=== PATIENT | female | born 1990 | race Caucasian/White ===

== ENCOUNTER 2016-11-03 15:47 | Emergency (ER) | payer OTHER ==
[2016-11-03] MEDS ORDERED: ONDANSETRON 4 MG/2 ML VIAL IVP STA (16:07)
[2016-11-03] MEDS ORDERED: SODIUM CHLORIDE 0.9% 1,000 ML IV ONE (16:07)
[2016-11-03] MEDS ORDERED: ONDANSETRON 4 MG/2 ML VIAL ONE (16:23)
[2016-11-03] MEDS ORDERED: IOPAMIDOL-300 100 ML VIAL IVP ONE (16:48)
== END 2016-11-03 17:55 | disposition home or self-care (01) ==
DX: R10.84 Generalized abdominal pain (principal); R11.2 Nausea with vomiting, unspecified
CPT/HCPCS: 36415; 74177; 80053; 81001; 81025; 83690; 85025; 96361; 96374; 99283; 99284; Q9967

== ENCOUNTER 2016-11-05 14:45 | Emergency (ER) | payer OTHER ==
[2016-11-05 15:08] VITALS: BP 115/73
--- NOTE | 2016-11-05 16:49 | ED Physician Documentation ---
PD HPI ABD PAIN - Stated complaint Stated Complaint: ABD PX - Chief complaint Chief Complaint: Abd Pain - History obtained from History obtained from: Patient - History of Present Illness Timing - onset: Other (Seen by me 2 days ago for right-sided abdominal pain and vomiting. Workup was negative including CT. Since then the pain has moved to the epigastrium, it is a dull and stabbing pain and she continues to have vomiting without hematemesis and no changes in her bowel movements. She does not take NSAIDs, drinks rarely. 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 - Present Medications Home Medications: Ambulatory Orders Medication Instructions Recorded Confirmed Ondansetron HCl [Zofran] 4 mg PO Q6H PRN #10 tablet 11/03/16 Omeprazole [PriLOSEC] 20 mg PO BID #20 capsule 11/05/16 - Allergies Allergies/Adverse Reactions: Allergies Allergy/AdvReac Type Severity Reaction Status Date / Time Penicillins Allergy Anaphylaxis Verified 11/03/16 15:51 - Social History Does the pt smoke?: No Smoking Status: Never smoker Does the pt drink ETOH?: Yes Does the pt have substance abuse?: No - Immunizations Immunizations are current?: No Immunizations: TDAP >10years/unknown PD ED PE NORMAL - Vitals Vital signs reviewed: Yes - General General: Alert and oriented X 3, No acute distress - Abdomen Abdomen: Normal bowel sounds, Soft, Other (Mild epigastric tendernerness) - Neuro Neuro: Alert and oriented X 3, Normal speech - Psych Psych: Normal mood, Normal affect Results - Vitals Vitals: Vital Signs - 24 hr 11/05/16 15:05 Temperature 37 C Heart Rate 73 Respiratory 18 Rate Blood Pressure 115/73 O2 Saturation 99 Oxygen O2 Source Room air PD MEDICAL DECISION MAKING - ED course ED course: 26yo woman with ongoing abd pain, now epigastric, completely better after GI cocktail here. Departure - Departure Disposition: Home, Self Care Clinical Impression: Epigastric abdominal pain Condition: Good Record reviewed to determine appropriate education?: Yes Instructions: ED PUD Vs Gastritis Prescriptions: Omeprazole [PriLOSEC] 20 mg PO BID #20 capsule Comments: Call your doctor to arrange a follow up appointment. Make the next available appointment. In the interim return anytime if worse or if new symptoms develop. Forms: Activity restrictions
[2016-11-05] MEDS ORDERED: MAG HYDROX/AL HYDROX/SIMETH 30 ML UDC ONE (16:51)
[2016-11-05] MEDS ORDERED: LIDOCAINE VISCOUS 2% 15 ML UDC MM ONE (16:51)
[2016-11-05] MEDS: MAG HYDROX/AL HYDROX/SIMETH 30 ML UDC PO STA (16:53)
[2016-11-05] MEDS: LIDOCAINE VISCOUS 2% 15 ML UDC MM STA (16:53)
== END 2016-11-05 17:21 | disposition home or self-care (01) ==
LOC: ED 14:45
DX: R10.13 Epigastric pain (principal)
CPT/HCPCS: 99283

== ENCOUNTER 2016-11-27 12:52 | Emergency (ER) | payer OTHER ==
[2016-11-27] MEDS ORDERED: PANTOPRAZOLE 40 MG TABLET PO STA (13:07)
[2016-11-27] MEDS ORDERED: LIDOCAINE VISCOUS 2% 15 ML UDC MM STA ×2 (13:07→15:18)
[2016-11-27] MEDS ORDERED: MAG HYDROX/AL HYDROX/SIMETH 30 ML UDC PO STA ×2 (13:07→15:18)
[2016-11-27] MEDS ORDERED: FAMOTIDINE 20 MG TABLET PO STA (15:18)
[2016-11-27] MEDS ORDERED: FAMOTIDINE 20 MG TABLET ONE (15:19)
[2016-11-27] MEDS ORDERED: MAG HYDROX/AL HYDROX/SIMETH 30 ML UDC ONE (15:19)
[2016-11-27] MEDS ORDERED: LIDOCAINE VISCOUS 2% 15 ML UDC MM ONE (15:19)
== END 2016-11-27 16:25 | disposition home or self-care (01) ==
DX: R10.13 Epigastric pain (principal); K76.0 Fatty (change of) liver, not elsewhere classified
CPT/HCPCS: 36415; 76705; 80053; 83690; 85025; 87339; 99283; 99284; A9270

== ENCOUNTER 2017-01-05 11:35 | Emergency (ER) | payer OTHER ==
[2017-01-05 11:47] VITALS: BP 111/69
--- NOTE | 2017-01-05 13:21 | ED Physician Documentation ---
PD HPI GI BLEED - Stated complaint Stated Complaint: BLOOD IN STOOL/VOMITING - Chief complaint Chief Complaint: Abd Pain - History obtained from History obtained from: Patient - History of Present Illness Timing - onset: Yesterday (she has had upper abd pain for 2-3 months, with prior U/S, CT, labs (including H.Pylori test) and has not Dx. Presumed ulcer and is on prilosec. Not improved. Has referral to GI at [facility] and she has contacted the clinic and is yet to get appt date, but will be in about a month. She has vomiting most mornings just once, then nausea often. Yesterday had emesis as usual, then a second emesis of bright red blood once. Nauses through the day. This morning had emesis again, and then second one that was red blood. Also noted a soft stool this morning which was black colored.) Timing - duration: Days (2) Associated symptoms: Vomiting, Hematemesis, Black/tarry stool, Abdominal pain, Loss of appetite. No: Coffee ground emesis, BRBPR, Dizzy, Near syncope / syncope, Weight loss Contributing factors: No: Sick contact, Bad food, NSAID use Improved by: No: Eating Worsened by: Eating Similar symptoms before: No diagnosis Review of Systems Constitutional: denies: Fever, Chills Nose: denies: Rhinorrhea / runny nose, Congestion Throat: denies: Sore throat Respiratory: denies: Cough GI: reports: Abdominal Pain, Nausea, Vomiting (about once daily the past month, but had vomiting of blood the past 2 mornings.), Bloody / black stool (dark stool today.) PD PAST MEDICAL HISTORY - Past Medical History Past Medical History: Yes Cardiovascular: None Respiratory: None Neuro: None Endocrine/Autoimmune: None GI: Ulcers Psych: Depression - Past Surgical History 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 - Present Medications Home Medications: Ambulatory Orders Medication Instructions Recorded Confirmed Omeprazole [PriLOSEC] 20 mg PO DAILY #60 capsule 11/27/16 01/05/17 Hydrocodone/Acetaminophen [Custer 1 each PO Q6H PRN #20 tablet 01/05/17 5-325 Tablet] Ondansetron HCl [Zofran] 4 mg PO Q6H PRN #20 tablet 01/05/17 Sucralfate 1 gm PO QID #40 tablet 01/05/17 - Allergies Allergies/Adverse Reactions: Allergies Allergy/AdvReac Type Severity Reaction Status Date / Time Penicillins Allergy Anaphylaxis Verified 11/27/16 12:57 - Social History Does the pt smoke?: Yes Smoking Status: Current every day smoker Does the pt drink ETOH?: Yes Does the pt have substance abuse?: No Substance Use and Type: Marijuana - Immunizations Immunizations are current?: No Immunizations: TDAP >10years/unknown PD ED PE NORMAL - Vitals Vital signs reviewed: Yes - General General: Alert and oriented X 3, Well developed/nourished, Other (seems uncomfortable with upper abd pain. ) - HEENT HEENT: Moist mucous membranes, Pharynx benign - Neck Neck: Supple, no meningeal sign, No adenopathy - Cardiac Cardiac: RRR, No murmur - Respiratory Respiratory: Clear bilaterally - Abdomen Abdomen: Normal bowel sounds, Soft, Non distended, No organomegaly, Other ( tender epigastric area with some guarding, no percussion nor rebound tenderness. ) - Female Female : Deferred - Rectal Rectal: Other (soft stool in vault, which is guiac positive. ) - Back Back: No CVA TTP - Derm Derm: Normal color, Warm and dry - Extremities Extremities: No tenderness to palpate, Normal ROM s pain - Neuro Neuro: Alert and oriented X 3, No motor deficit, Normal speech - Psych Psych: Normal mood, Normal affect Results - Vitals Vitals: Vital Signs - 24 hr 01/05/17 11:45 Temperature 36.6 C Heart Rate 88 Respiratory 20 Rate Blood Pressure 111/69 O2 Saturation 97 Oxygen O2 Source Room air - Labs Labs: Laboratory Tests 01/05/17 01/05/17 01/05/17 14:00 14:00 14:00 WBC 12.7 H RBC 4.63 Hgb 12.3 Hct 37.2 MCV 80.3 L MCH 26.5 L MCHC 33.0 RDW 14.0 Plt Count 289 MPV 8.8 Neut # 9.7 H Lymph # 2.1 [place] # 0.7 Eos # 0.1 Baso # 0.1 Absolute Nucleated RBC 0.00 Nucleated RBCs 0.0 Sodium 137 Potassium 3.7 Chloride 104 Carbon Dioxide 20 L Anion Gap 13.0 BUN 10 Creatinine 0.7 Estimated GFR (MDRD) 101 Glucose 76 Calcium 9.4 Total Bilirubin 0.9 AST 23 ALT 18 Alkaline Phosphatase 70 Total Protein 7.6 Albumin 4.6 Globulin 3.0 Albumin/Globulin Ratio 1.5 Lipase 16 L Blood Type O POSITIVE Antibody Screen NEGATIVE PD MEDICAL DECISION MAKING - ED course Complexity details: reviewed old records, reviewed results (blood count is good. Vitals are stable. ), considered differential (has had upper abd pain and is to get referral to GI at [place]. That is still to be scheduled but will be in about a month. Had prior evaluations and I did not see need for testing other than blood count at this time. Consider gastritis/ulcer with now bleeding vs. vomiting with Екатерина-Pool tear. Does not seem in pain/distress, does not seem like [place]. ), d/w patient, d/w recruiting consultant (Dr. Quarles, surgery, who came and saw patient, examined, and arranged followup. ) Departure - Departure Disposition: 01 Home, Self Care Clinical Impression: Epigastric abdominal pain, Hematemesis with nausea Condition: Stable Record reviewed to determine appropriate education?: Yes Instructions: ED PUD Vs Gastritis, ED Bleed UGI Stable [facility] Michael Quarles DO [Provider Admit Priv/Credential] - Prescriptions: Hydrocodone/Acetaminophen [Custer 5-325 Tablet] 1 each PO Q6H PRN #20 tablet PRN Reason: Pain Sucralfate 1 gm PO QID #40 tablet Ondansetron HCl [Zofran] 4 mg PO Q6H PRN #20 tablet PRN Reason: Nausea / Vomiting Comments: Continue the Omeprazole. Add Sucralfate 4 times daily. Tylenol every 4-6 hours if needed for pain; add hydrocodone as needed. Zofran if needed for nausea. Presume either the stomach gastritis/ulcer is worse with some bleeding, or there might have been a small tear of the stomach lining from the vomiting, that leads to short term bleeding. This will typically stop itself in a day or two, as it heals. Follow up with Surgery in next few days. Could alternatively call the GI Clinic at [place] and see if the appt wih them can be gotten sooner. Discharge Date/Time: 01/05/17 16:05
[2017-01-05] MEDS ORDERED: SODIUM CHLORIDE 0.9% 1,000 ML IV ONE (13:47)
[2017-01-05] MEDS ORDERED: HYDROmorphone 1 MG/ML SYRINGE IVP STA (13:47)
[2017-01-05] MEDS ORDERED: FAMOTIDINE 20 MG/50 ML 50 ML IV ONE ×2 (13:48→13:54)
[2017-01-05] MEDS ORDERED: SUCRALFATE 1 GM/10 ML UDC PO STA (13:48)
[2017-01-05] MEDS ORDERED: ONDANSETRON 4 MG/2 ML VIAL IVP STA (13:49)
[2017-01-05] MEDS ORDERED: HYDROmorphone 1 MG/ML SYRINGE ONE (13:53)
[2017-01-05] MEDS ORDERED: SUCRALFATE 1 GM/10 ML UDC ONE (13:53)
[2017-01-05] MEDS ORDERED: ONDANSETRON 4 MG/2 ML VIAL ONE (13:54)
[2017-01-05 14:09] LABS: BASOPHILS # (AUTO) 0.1 10^3/uL (0.0-0.1); BASOPHILS % (AUTO) 0.8 %; EOSINOPHILS # (AUTO) 0.1 10^3/uL (0.0-0.7); EOSINOPHILS % (AUTO) 0.9 %; HCT - HEMATOCRIT 37.2 % (37.0-47.0); HGB - HEMOGLOBIN 12.3 g/dL (12.0-16.0); LYMPHOCYTES # (AUTO) 2.1 10^3/uL (1.5-3.5); LYMPHOCYTES % (AUTO) 16.7 %; MEAN CORPUSCULAR HEMOGLOBIN 26.5 pg (27.0-31.0); MEAN CORPUSCULAR VOLUME 80.3 fL (81.0-99.0); MEAN PLATELET VOLUME 8.8 fL (7.9-10.8); MONOCYTES # (AUTO) 0.7 10^3/uL (0.0-1.0); MONOCYTES % (AUTO) 5.3 %; NEUTROPHILS # (AUTO) 9.7 10^3/uL (1.5-6.6); NEUTROPHILS % (AUTO) 76.3 %; RED BLOOD COUNT 4.63 10^6/uL (4.20-5.40); UNCORRECTED WHITE BLOOD COUNT 12.7 x10^3/uL; WHITE BLOOD COUNT 12.7 x10^3/uL (4.8-10.8)
[2017-01-05 14:21] LABS: ALBUMIN/GLOBULIN RATIO 1.5 (1.0-2.2); BILIRUBIN,TOTAL 0.9 mg/dL (0.2-1.0); CALCIUM 9.4 mg/dL (8.5-10.3); CREATININE 0.7 mg/dL (0.4-1.0); POTASSIUM 3.7 mmol/L (3.5-5.0); TOTAL PROTEIN 7.6 g/dL (6.7-8.2)
== END 2017-01-05 16:05 | disposition home or self-care (01) ==
LOC: ED 11:35
DX: R10.13 Epigastric pain (principal); K92.0 Hematemesis; K92.1 Melena; Z87.11 Personal history of peptic ulcer disease; F17.200 Nicotine dependence, unspecified, uncomplicated
CPT/HCPCS: 36415; 80053; 83690; 85025; 86850; 86900; 86901; 96374; 96375; 99283; 99284; A9270; J1170

== ENCOUNTER 2017-01-21 14:34 | Emergency (ER) | payer OTHER ==
[2017-01-21 14:39] VITALS: BP 117/67
--- NOTE | 2017-01-21 14:48 | ED Physician Documentation ---
PD HPI MHE - Stated complaint Stated Complaint: SI - Chief complaint Chief Complaint: MHE - History obtained from History obtained from: Patient - History of Present Illness Primary symptom: Other (26 year-old woman with relatively acute suicidal ideation but vague without plan, based around relationship issues. Denies drug or alcohol he use except for daily marijuana. 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 - Present Medications Home Medications: Ambulatory Orders Medication Instructions Recorded Confirmed Omeprazole [PriLOSEC] 20 mg PO DAILY #60 capsule 11/27/16 01/21/17 Sucralfate 1 gm PO QID #40 tablet 01/05/17 01/21/17 Sertraline HCl 3 tab PO DAILY #90 tablet 01/21/17 - Allergies Allergies/Adverse Reactions: Allergies Allergy/AdvReac Type Severity Reaction Status Date / Time Penicillins Allergy Anaphylaxis Verified 11/27/16 12:57 - Social History Does the pt smoke?: Yes Smoking Status: Current every day smoker Does the pt drink ETOH?: Yes Does the pt have substance abuse?: No - Family History Family history: reports: Non contributory - Immunizations Immunizations are current?: No Immunizations: TDAP >10years/unknown PD ED PE NORMAL - Vitals Vital signs reviewed: Yes - General General: Alert and oriented X 3, No acute distress - Cardiac Cardiac: RRR, No murmur - Respiratory Respiratory: No respiratory distress, Clear bilaterally - Abdomen Abdomen: Soft, Non tender - Back Back: No CVA TTP, No spinal TTP - Derm Derm: Normal color, Warm and dry - Extremities Extremities: No edema, No calf tenderness / cord - Neuro Neuro: Alert and oriented X 3, Normal speech - Psych Psych: Normal mood, Normal affect Results - Vitals Vitals: Vital Signs - 24 hr 01/21/17 14:38 Temperature 36.6 C Heart Rate 94 Respiratory 18 Rate Blood Pressure 117/67 O2 Saturation 100 Oxygen O2 Source Room air - Labs Labs: Laboratory Tests 01/21/17 01/21/17 01/21/17 14:45 14:45 15:15 WBC 10.9 H RBC 5.27 Hgb 14.1 Hct 42.7 MCV 81.0 MCH 26.7 L MCHC 33.0 RDW 14.8 Plt Count 303 MPV 9.0 Neut # 7.2 H Lymph # 2.4 [place] # 0.7 Eos # 0.4 Baso # 0.1 Absolute Nucleated RBC 0.01 Nucleated RBCs 0.1 Sodium Potassium Chloride Carbon Dioxide Anion Gap BUN Creatinine Estimated GFR (MDRD) Glucose Calcium Total Bilirubin AST ALT Alkaline Phosphatase Total Protein Albumin Globulin Albumin/Globulin Ratio Lipase Urine Color LIGHT YELLOW Urine Clarity CLEAR Urine pH 6.5 Ur Specific [place] <=1.005 <=1.005 Urine Protein NEGATIVE Urine Glucose (UA) NEGATIVE Urine Ketones NEGATIVE Urine Occult Blood TRACE-INTA Urine Nitrite NEGATIVE Urine Bilirubin NEGATIVE Urine Urobilinogen 0.2 (NORMAL) Ur Leukocyte Esterase NEGATIVE Ur Microscopic Review NOT INDICATED Urine Culture Comments NOT INDICATED Urine HCG, Qual NEGATIVE Urine Opiates Screen NEGATIVE Ur Oxycodone Screen NEGATIVE Urine Methadone Screen NEGATIVE Ur Propoxyphene Screen NEGATIVE Ur Barbiturates Screen NEGATIVE Ur Tricyclics Screen NEGATIVE Ur Phencyclidine Scrn NEGATIVE Ur Amphetamine Screen NEGATIVE U Methamphetamines Scrn NEGATIVE U Benzodiazepines Scrn NEGATIVE Urine Cocaine Screen NEGATIVE U Cannabinoids Screen POSITIVE H Ethyl Alcohol 01/21/17 15:15 WBC RBC Hgb Hct MCV MCH MCHC RDW Plt Count MPV Neut # Lymph # [place] # Eos # Baso # Absolute Nucleated RBC Nucleated RBCs Sodium 140 Potassium 3.6 Chloride 106 Carbon Dioxide 26 Anion Gap 8.0 BUN 8 Creatinine 0.9 Estimated GFR (MDRD) 76 L Glucose 129 H Calcium 9.5 Total Bilirubin 0.4 AST 19 ALT 20 Alkaline Phosphatase 75 Total Protein 7.7 Albumin 4.5 Globulin 3.2 Albumin/Globulin Ratio 1.4 Lipase 16 L Urine Color Urine Clarity Urine pH Ur Specific [place] Urine Protein Urine Glucose (UA) Urine Ketones Urine Occult Blood Urine Nitrite Urine Bilirubin Urine Urobilinogen Ur Leukocyte Esterase Ur Microscopic Review Urine Culture Comments Urine HCG, Qual Urine Opiates Screen Ur Oxycodone Screen Urine Methadone Screen Ur Propoxyphene Screen Ur Barbiturates Screen Ur Tricyclics Screen Ur Phencyclidine Scrn Ur Amphetamine Screen U Methamphetamines Scrn U Benzodiazepines Scrn Urine Cocaine Screen U Cannabinoids Screen Ethyl Alcohol < 5.0 PD MEDICAL DECISION MAKING - ED course ED course: Seen by the social worker assistant, contracted for safety, requests a refill of her Zoloft which was given pending outpatient followup. Departure - Departure Disposition: 01 Home, Self Care Clinical Impression: Depression Condition: Good Record reviewed to determine appropriate education?: Yes Instructions: ED Depression Prescriptions: Sertraline HCl 3 tab PO DAILY #90 tablet Comments: Follow the instructions of the social worker assistant regarding outpatient followup and treatment, return if worse.
[2017-01-21 15:18] LABS: BILIRUBIN,URINE NEGATIVE (NEGATIVE); PH,URINE 6.5 PH (5.0-7.5)
[2017-01-21 15:21] LABS: HCG UR QUAL NEGATIVE; UA CHARGE (STRIP ONLY) YES; UR CULTURE IF IND NOT INDICATED
[2017-01-21 15:22] LABS: BASOPHILS # (AUTO) 0.1 10^3/uL (0.0-0.1); BASOPHILS % (AUTO) 1.3 %; EOSINOPHILS # (AUTO) 0.4 10^3/uL (0.0-0.7); EOSINOPHILS % (AUTO) 3.7 %; HCT - HEMATOCRIT 42.7 % (37.0-47.0); HGB - HEMOGLOBIN 14.1 g/dL (12.0-16.0); LYMPHOCYTES # (AUTO) 2.4 10^3/uL (1.5-3.5); LYMPHOCYTES % (AUTO) 22.1 %; MEAN CORPUSCULAR HEMOGLOBIN 26.7 pg (27.0-31.0); MONOCYTES # (AUTO) 0.7 10^3/uL (0.0-1.0); MONOCYTES % (AUTO) 6.8 %; NEUTROPHILS # (AUTO) 7.2 10^3/uL (1.5-6.6); NEUTROPHILS % (AUTO) 66.1 %; NUCLEATED RED BLOOD CELLS AUTO 0.1 /100WBC; RED BLOOD COUNT 5.27 10^6/uL (4.20-5.40); RED CELL DISTRIBUTION WIDTH 14.8 % (12.0-15.0); UNCORRECTED WHITE BLOOD COUNT 10.9 x10^3/uL; WHITE BLOOD COUNT 10.9 x10^3/uL (4.8-10.8)
[2017-01-21 15:31] LABS: ALBUMIN/GLOBULIN RATIO 1.4 (1.0-2.2); BILIRUBIN,TOTAL 0.4 mg/dL (0.2-1.0); BUN - BLOOD UREA NITROGEN 8 mg/dL (6-20); CALCIUM 9.5 mg/dL (8.5-10.3); CARBON DIOXIDE - CO2 26 mmol/L (21-32); CHLORIDE 106 mmol/L (101-111); CREATININE 0.9 mg/dL (0.4-1.0); GFR - MDRD 76 (>89); GLUCOSE 129 mg/dL (70-100); LIPASE 16 U/L (22-51); POTASSIUM 3.6 mmol/L (3.5-5.0); SODIUM 140 mmol/L (135-145); TOTAL PROTEIN 7.7 g/dL (6.7-8.2)
== END 2017-01-21 15:57 | disposition home or self-care (01) ==
LOC: ED 14:34
DX: F32.9 Major depressive disorder, single episode, unspecified (principal); R45.851 Suicidal ideations; F17.200 Nicotine dependence, unspecified, uncomplicated
CPT/HCPCS: 36415; 80053; 80306; 80320; 81001; 81003; 81025; 83690; 85025; 87086; 99283; 99284

== ENCOUNTER 2017-04-19 15:03 | Outpatient (CLI) | payer OTHER | END 2017-04-19 15:04 | disposition critical access hospital (66) | LOC: EMS 15:03 | PROVIDERS: ATTEND Surgery | DX: R55 Syncope and collapse (principal) | CPT/HCPCS: A0425; A0429 ==

== ENCOUNTER 2017-04-19 15:23 | Emergency (ER) | payer OTHER ==
--- NOTE | 2017-04-19 15:34 | ED Physician Documentation ---
PD HPI SYNCOPE - Stated complaint Stated Complaint: SYNCOPE - Chief complaint Chief Complaint: Neuro - History obtained from History obtained from: Patient, EMS - History of Present Illness Witnessed: Witnessed Timing - onset: Today Duration: Minutes (1-2 minutes of looking pale, fainted, then slowly roused to normal) Preceding symptoms: Headache (gradually for couple hours prior. Was feeling lightheaded with nausea, malaise, general weakness earlier in the day. Had not eaten lunch due to nausea.), Nausea / vomiting, Light headed. No: Chest pain, Dyspnea, Abdominal pain Associated symptoms: No: Seizure, Incontinant of urine, Chest pain, Abdominal pain Injury occurred: No: Head injury, Neck injury Similar symptoms before: Has not had sx before Recently seen: Not recently seen Review of Systems Constitutional: reports: Myalgias, Fatigue (for 1-2 days). denies: Fever, Chills Nose: denies: Rhinorrhea / runny nose, Congestion Throat: denies: Sore throat Respiratory: denies: Cough GI: reports: Nausea (today). denies: Diarrhea : denies: Dysuria, Frequency, Discharge Skin: denies: Rash Musculoskeletal: denies: Neck pain, Back pain Neurologic: reports: Generalized weakness, Syncope, Headache (mild, gradual today). 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 - Present Medications Home Medications: Ambulatory Orders Medication Instructions Recorded Confirmed Omeprazole [PriLOSEC] 20 mg PO DAILY #60 capsule 11/27/16 04/19/17 Sertraline HCl 3 tab PO DAILY #90 tablet 01/21/17 04/19/17 - Allergies Allergies/Adverse Reactions: Allergies Allergy/AdvReac Type Severity Reaction Status Date / Time Penicillins Allergy Anaphylaxis Verified 04/19/17 15:28 - Social History Does the pt smoke?: Yes Smoking Status: Current every day smoker Does the pt drink ETOH?: No Does the pt have substance abuse?: No Substance Use and Type: Marijuana - Family History Family history: denies: Venous thromboembolism, Cerebral aneurysm - Immunizations Immunizations are current?: Yes Immunizations: TDAP current <10years PD ED PE NORMAL - Vitals Vital signs reviewed: Yes - General General: Alert and oriented X 3, No acute distress, Well developed/nourished - HEENT HEENT: Ears normal, Moist mucous membranes, Pharynx benign - Neck Neck: Supple, no meningeal sign, No adenopathy - Cardiac Cardiac: RRR, No murmur - Respiratory Respiratory: Clear bilaterally - Abdomen Abdomen: Soft, Non tender - Back Back: No CVA TTP, No spinal TTP - Derm Derm: Normal color, Warm and dry - Extremities Extremities: No deformity, No tenderness to palpate, Normal ROM s pain - Neuro Neuro: Alert and oriented X 3, 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 No: ST elevation c/w ischemia, ST depression - Labs Labs: Laboratory Tests 04/19/17 04/19/17 04/19/17 15:47 15:47 15:47 WBC 24.9 H RBC 4.64 Hgb 12.3 Hct 37.4 MCV 80.5 L MCH 26.6 L MCHC 33.0 RDW 15.6 H Plt Count 296 MPV 9.2 Neut # 22.0 H Lymph # 1.5 [place] # 1.1 H Eos # 0.2 Baso # 0.1 Absolute Nucleated RBC 0.01 Nucleated RBCs 0.0 Manual Slide Review Indicated WBC Morphology NORMAL APPEARANCE Platelet Estimate NORMAL (130-450,000) Platelet Morphology NORMAL APPEARANCE RBC Morph Micro Appear NORMAL APPEARANCE Sodium 137 Potassium 3.9 Chloride 105 Carbon Dioxide 23 Anion Gap 9.0 BUN 13 Creatinine 0.7 Estimated GFR (MDRD) 100 Glucose 114 H Calcium 9.1 Total Bilirubin < 0.2 L AST 21 ALT 13 Alkaline Phosphatase 76 Total Protein 7.6 Albumin 4.4 Globulin 3.2 Albumin/Globulin Ratio 1.4 Lipase 23 TSH 0.57 Serum HCG, Qual 04/19/17 15:47 WBC RBC Hgb Hct MCV MCH MCHC RDW Plt Count MPV Neut # Lymph # [place] # Eos # Baso # Absolute Nucleated RBC Nucleated RBCs Manual Slide Review WBC Morphology Platelet Estimate Platelet Morphology RBC Morph Micro Appear Sodium Potassium Chloride Carbon Dioxide Anion Gap BUN Creatinine Estimated GFR (MDRD) Glucose Calcium Total Bilirubin AST ALT Alkaline Phosphatase Total Protein Albumin Globulin Albumin/Globulin Ratio Lipase TSH Serum HCG, Qual NEGATIVE PD MEDICAL DECISION MAKING - ED course Complexity details: reviewed results, considered differential (she was not feeling well with some nausea and lightheaded earlier and then postural syncope at work. Has mild headache. Does not seem meningitic. Elevated WBC consider infectious cause versus demargination, as not having temp nor focal infectious symptoms (just general malaise). I don't see clinical indication for LP at this time. Told patient to return if worsening symptoms. ), d/w patient Departure - Departure Disposition: 01 Home, Self Care Clinical Impression: Mild headache Syncope Qualifiers: Syncope type: unspecified Qualified Code(s): R55 - Syncope and collapse Leukocytosis Qualifiers: Leukocytosis type: unspecified Qualified Code(s): D72.829 - Elevated white blood cell count, unspecified Condition: Stable Record reviewed to determine appropriate education?: Yes Instructions: ED Fainting Unkn Cause Comments: Rest for the rest of today. Drink lots of fluids. Recheck if recurring symptoms or any recurrence of the headache or other concerns. Tylenol or ibuprofen if needed for mild pains. Presume that your blood pressure dropped momentarily leading to the fainting. This might have resulted as a response to the immunization from 2 days ago or could be a impending illness. Your white count is elevated here today and could be good to have it rechecked next week to ensure its improving and not indicative of some more indolent type of infection. Discharge Date/Time: 04/19/17 17:35
[2017-04-19] MEDS ORDERED: SODIUM CHLORIDE 0.9% 1,000 ML IV ONE (16:02)
[2017-04-19] MEDS ORDERED: ACETAMINOPHEN 325 MG TABLET PO STA (16:03)
[2017-04-19] MEDS ORDERED: KETOROLAC 60 MG/2 ML VIAL IVP STA (16:03)
[2017-04-19 16:13] LABS: BASOPHILS # (AUTO) 0.1 10^3/uL (0.0-0.1); BASOPHILS % (AUTO) 0.5 %; EOSINOPHILS # (AUTO) 0.2 10^3/uL (0.0-0.7); EOSINOPHILS % (AUTO) 0.7 %; HCT - HEMATOCRIT 37.4 % (37.0-47.0); HGB - HEMOGLOBIN 12.3 g/dL (12.0-16.0); LYMPHOCYTES # (AUTO) 1.5 10^3/uL (1.5-3.5); LYMPHOCYTES % (AUTO) 5.9 %; MEAN CORPUSCULAR HEMOGLOBIN 26.6 pg (27.0-31.0); MEAN CORPUSCULAR VOLUME 80.5 fL (81.0-99.0); MEAN PLATELET VOLUME 9.2 fL (7.9-10.8); MONOCYTES # (AUTO) 1.1 10^3/uL (0.0-1.0); MONOCYTES % (AUTO) 4.5 %; NEUTROPHILS % (AUTO) 88.4 %; RED BLOOD COUNT 4.64 10^6/uL (4.20-5.40); RED CELL DISTRIBUTION WIDTH 15.6 % (12.0-15.0); UNCORRECTED WHITE BLOOD COUNT 24.9 x10^3/uL; WHITE BLOOD COUNT 24.9 x10^3/uL (4.8-10.8)
[2017-04-19 16:19] LABS: ALBUMIN/GLOBULIN RATIO 1.4 (1.0-2.2); BILIRUBIN,TOTAL < 0.2 mg/dL (0.2-1.0); BUN - BLOOD UREA NITROGEN 13 mg/dL (6-20); CALCIUM 9.1 mg/dL (8.5-10.3); CARBON DIOXIDE - CO2 23 mmol/L (21-32); CHLORIDE 105 mmol/L (101-111); CREATININE 0.7 mg/dL (0.4-1.0); GFR - MDRD 100 (>89); GLUCOSE 114 mg/dL (70-100); LIPASE 23 U/L (22-51); POTASSIUM 3.9 mmol/L (3.5-5.0); SODIUM 137 mmol/L (135-145); TOTAL PROTEIN 7.6 g/dL (6.7-8.2)
[2017-04-19] MEDS ORDERED: SODIUM CHLORIDE FLUSH 0.9% 10 ML SYRINGE IVP ONE (16:19)
[2017-04-19] MEDS ORDERED: ACETAMINOPHEN 325 MG TABLET PO ONE (16:19)
[2017-04-19] MEDS ORDERED: KETOROLAC 30 MG/ML VIAL ONE (16:19)
[2017-04-19 16:42] LABS: PLATELET ESTIMATE, MANUAL NORMAL (130-450,000) (NORMAL); PLATELET MORPHOLOGY NORMAL APPEARANCE (NORMAL); WBC MORPHOLOGY (MULTIPLE) NORMAL APPEARANCE (NORMAL)
[2017-04-19 17:34] VITALS: BP 112/60
== END 2017-04-19 17:35 | disposition home or self-care (01) ==
LOC: ED 15:23
DX: R55 Syncope and collapse (principal); R51 Headache; D72.829 Elevated white blood cell count, unspecified; Z87.11 Personal history of peptic ulcer disease; F17.200 Nicotine dependence, unspecified, uncomplicated
CPT/HCPCS: 36415; 80053; 83690; 84443; 84703; 85025; 93005; 96361; 96374; 99283; 99284; A9270

== ENCOUNTER 2017-07-03 13:32 | Outpatient (CLI) | payer OTHER ==
[2017-07-03] MEDS ORDERED: SINCALIDE 5 MCG VIAL ONE (14:56)
[2017-07-03] MEDS ORDERED: SINCALIDE 1.48 MCG in SODIUM CHLORIDE 0.9% 50 ML IV ONE (15:06)
--- NOTE | 2017-07-03 17:16 | Nuclear Medicine Report ---
EXAM: HEPATOBILIARY SCAN WITH CCK/KINEVAC ADMINISTRATION EXAM DATE: 07/03/2017 04:10 PM. CLINICAL HISTORY: EPIGASTRIC PAIN. COMPARISON: Ultrasound exam dated 11/27/2016. TECHNIQUE: Following the intravenous administration of 5.4 mCi of Tc99m Mebrofenin, a hepatobiliary s can was done centered on the liver and gallbladder in multiple sequential images and projections. Following the intravenous administration of 1.48 mcg of CCK/ Kinevac over the course of approximately 60 minutes, dynamic imaging was done and the gallbladder ejection fraction was calculated. FINDINGS: Normal extraction of tracer from the blood pool indicating normal hepatocellular function. The liver size and shape is grossly within normal limits. There is activity visualized within the bile ducts, gallbladder, and small bowel within the first samia r. With CCK administration, the gallbladder demonstrates an effective contraction. The gallbladder eject ion fraction is calculated to be 80%, well above the lower limit of normal of 38% for a 60-minute inj ection. The patient did not report symptoms after CCK administration. Positive for enterogastric bile reflux. IMPRESSION: 1. Patent cystic duct. 2. Patent common bile duct. 3. Negative for acute or chronic cholecystitis. 4. Positive for enterogastric bile reflux. 5. Normal gallbladder ejection fraction of 80%. [facility] Referring Provider Line: [phone] SITE ID: [id number]
== END 2017-07-03 13:33 | disposition home or self-care (01) ==
LOC: DI 13:32
PROVIDERS: ATTEND Physician Assistant Medical
DX: K31.89 Other diseases of stomach and duodenum (principal)
CPT/HCPCS: 78227; A9537; J7040

== ENCOUNTER 2017-08-01 07:40 | Outpatient (CLI) | payer OTHER ==
[2017-08-01] MEDS ORDERED: IOPAMIDOL-300 50 ML VIAL ONE (08:02)
[2017-08-01] MEDS ORDERED: IOPAMIDOL-300 100 ML VIAL ONE (08:02)
[2017-08-01] MEDS ORDERED: IOPAMIDOL-300 50 ML VIAL PO ONE (09:13)
[2017-08-01] MEDS ORDERED: IOPAMIDOL-300 100 ML VIAL IVP ONE (09:13)
--- NOTE | 2017-08-14 15:26 | CT Report ---
DATE OF SERVICE: 08/01/2017 CT OF ABDOMEN AND PELVIS: 08/01/2017 CLINICAL INDICATION: Right lower quadrant pain. TECHNIQUE: Axial CT images of the abdomen and pelvis were obtained with 100 mL Isovue 300 intravenously as well as oral contrast. COMPARISON: 11/03/2016. FINDINGS: Limited evaluation of the lung bases is unremarkable. ABDOMEN: The liver, spleen, pancreas, kidneys and adrenal glands are unremarkable. The gallbladder is not dilated. No bowel dilatation, free gas, or free fluid is present. No abdominal adenopathy is seen. PELVIS: The pelvic organs appear unremarkable. The appendix is seen in the right lower quadrant, and is normal in caliber. No free fluid or pelvic adenopathy is present. Osseous structures are unremarkable. IMPRESSION: NORMAL CT OF THE ABDOMEN AND PELVIS WITH CONTRAST. NO EVIDENT ETIOLOGY FOR PATIENT'S RIGHT LOWER QUADRANT PAIN. In accordance with CT protocol optimization, one or more of the following dose reduction techniques were utilized for this exam: automated exposure control, adjustment of mA and/or KV based on patient size, or use of iterative reconstructive technique. TD: 08/14/2017 16:25
== END 2017-08-01 07:41 | disposition home or self-care (01) ==
LOC: DI 07:40
PROVIDERS: ATTEND Physician Assistant Medical
DX: R10.31 Right lower quadrant pain (principal)
CPT/HCPCS: 74177; Q9967

== ENCOUNTER 2020-04-03 12:59 | Outpatient (CLI) | payer MEDICAID | END 2020-04-03 13:00 | disposition EMS.NT | LOC: EMS 12:59 | PROVIDERS: ATTEND Surgery | DX: R51 Headache (principal); V47.9XXA Unspecified car occupant injured in collision with fixed or stationary object in traffic accident, initial encounter; Y92.414 Local residential or business street as the place of occurrence of the external cause ==

== ENCOUNTER 2022-02-12 21:47 | Emergency (ER) | payer MEDICAID, OTHER ==
[2022-02-12 21:53] VITALS: BP 129/65
== END 2022-02-13 00:26 | disposition left against medical advice (07) ==
LOC: ED 21:47
DX: T63.301A Toxic effect of unspecified spider venom, accidental (unintentional), initial encounter (principal); Z53.21 Procedure and treatment not carried out due to patient leaving prior to being seen by health care provider

== ENCOUNTER 2022-02-13 14:51 | Emergency (ER) | payer MEDICAID ==
[2022-02-13 15:02] VITALS: BP 116/69
[2022-02-13] MEDS ORDERED: lidocaine 1% 20 ML MDV SUBQ ONE (15:13)
--- NOTE | 2022-02-13 15:14 | ED Physician Documentation ---
PD HPI UPPER EXT INJURY - Stated complaint Stated Complaint: RT HAND BITE - Chief complaint Chief Complaint: Wound - History obtained from History obtained from: Patient (She has had a painful lesion on her right middle finger for the last 3 days. Thinks it might be a bite although she does not remember seeing anything bite her. 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: section - Present Medications Home Medications: Ambulatory Orders Medication Instructions Recorded Confirmed HYDROcod/ACETAM 5/325 [[place] 5/325] 1 - 2 tab PO Q6H PRN #15 tablet 02/13/22 Sulfamethox/Trimeth 800/160 1 each PO BID #14 tablet 02/13/22 [Bactrim Ds 800/160] - Allergies Allergies/Adverse Reactions: Allergies Allergy/AdvReac Type Severity Reaction Status Date / Time Penicillins Allergy Anaphylaxis Verified 02/13/22 15:02 - Social History Does the pt smoke?: Yes Smoking Status: Current every day smoker Does the pt drink ETOH?: No Does the pt have substance abuse?: No - Immunizations Immunizations are current?: Yes Immunizations: TDAP current <10years PD ED PE NORMAL - Vitals Vital signs reviewed: Yes - General General: Alert and oriented X 3, No acute distress - HEENT HEENT: PERRL, EOMI - Extremities Extremities: Other (On the dorso-radial side of the right third digit there is a red swollen lesion with some swelling of the digit but no tenderness along the flexor tendon sheath. There is cellulitis tracking up to the mid hand.) - Neuro Neuro: Alert and oriented X 3, Normal speech Results - Vitals Vitals: Vital Signs - 24 hr 02/13/22 14:57 Temperature 37.2 C Heart Rate 100 Respiratory 16 Rate Blood Pressure 116/69 O2 Saturation 100 Oxygen O2 Source Room air Procedures - Abscess I&D (location) R middle finger Preparation: Confirmed with ultrasound, Lidocaine 1% (digital block) Incision: Incised with scalpel, Purulent drainage, Culture obtained Other: Pt tolerated well, Dressing applied, Antibiotic prescribed PD MEDICAL DECISION MAKING - ED course ED course: 31-year-old woman presents with an infection of the right middle finger. Is on the dorsal surface and really nothing consistent with flexor tenosynovitis. Using bedside ultrasound I confirmed an abscess cavity and this was incised and drained. Culture was obtained. It was too small to pack. Given the location on her hand she will return in 24 hours for wound check. Departure - Departure Disposition: Home, Self Care Clinical Impression: Abscess of finger of right hand Condition: Good Record reviewed to determine appropriate education?: Yes Instructions: ED Abscess IandD Prescriptions: Sulfamethox/Trimeth 800/160 [Bactrim Ds 800/160] 1 each PO BID #14 tablet HYDROcod/ACETAM 5/325 [[place] 5/325] 1 - 2 tab PO Q6H PRN #15 tablet PRN Reason: Pain Comments: I sent your prescriptions electronically to [facility]. As discussed, plan wound check for tomorrow afternoon back here. Sooner if worse. I am prescribing a short course of narcotic pain medication for you. These are potentially dangerous and addictive medications that should be used carefully. These medications may constipate you. Take an [id number] stool softener (docusate) twice daily with plenty of water while taking these medications. If you go 24 hours without a bowel movement, take [id number] miralax, per package instructions. Do not drink or drive while taking these medications. If you received narcotic or sedating medications while in the emergency department, do not drive for 24 hours. Store this medication in a safe, secure place and out of reach of children. It is a violation of federal law to give or sell this medication to another person or to use in a manner other than prescribed. The ED will not refill narcotic prescriptions, including prescriptions lost or stolen. To dispose of unwanted medications: 1. [facility] [address] in [place] has a medication drop box. They accept prescription medications (in pill form) Saturday through Saturday 9:00 a.m. to 5:00 p.m. 2. [facility] [employer] accepts prescription medications (in pill form only) for disposal year round. Call for more information. 3. Contact the [facility] for the next [facility] sponsored prescription drug collection event. , [phone], or [phone]; Note that many narcotic pain relievers also contain Tylenol/acetaminophen. Please ensure that your total dose of acetaminophen from all sources does not exceed 3 g (3000 mg) per day. We are performing a wound culture, the results should be done in 48-72 hours. If antibiotic change is necessary we will call you. Discharge Date/Time: 02/13/22 15:37
[2022-02-13] MEDS ORDERED: SULFAMETH/TRIMETH DS 800/160 MG TABLET PO STA (15:19)
== END 2022-02-13 15:37 | disposition home or self-care (01) ==
LOC: ED 14:51
DX: L02.511 Cutaneous abscess of right hand (principal); F17.200 Nicotine dependence, unspecified, uncomplicated
CPT/HCPCS: 26010; 87070; 87181; 87205; 99283; A9270

== ENCOUNTER 2022-02-15 12:27 | Emergency (ER) | payer MEDICAID ==
[2022-02-15 12:34] VITALS: BP 130/78
--- NOTE | 2022-02-15 12:54 | ED Physician Documentation ---
PD HPI UPPER EXT INJURY - Stated complaint Stated Complaint: R HAND SWELLING - Chief complaint Chief Complaint: Ext Problem - History obtained from History obtained from: Patient - Additonal information Additional information: She returns as requested for a scheduled wound check of a right middle finger abscess. In the interim since yesterday the Staph aureus has grown out MRSA. It is sensitive to the Bactrim that she was originally put on but resistant to the clindamycin that was added yesterday. She still having a lot of pain, the swelling is better than yesterday there. No other lesions or systemic symptoms. 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 - Present Medications Home Medications: Ambulatory Orders Medication Instructions Recorded Confirmed HYDROcod/ACETAM 5/325 [[place] 5/325] 1 - 2 tab PO Q6H PRN #15 tablet 02/13/22 Sulfamethox/Trimeth 800/160 1 each PO BID #14 tablet 02/13/22 [Bactrim Ds 800/160] HYDROcod/ACETAM 5/325 [[place] 5/325] 1 - 2 tab PO Q6H PRN #15 tablet 02/14/22 clindamycin HCL [Cleocin HCl] 300 mg PO QID #28 cap 02/14/22 - Allergies Allergies/Adverse Reactions: Allergies Allergy/AdvReac Type Severity Reaction Status Date / Time Penicillins Allergy Anaphylaxis Verified 02/15/22 12:34 - Social History Does the pt smoke?: Yes Smoking Status: Current every day smoker Does the pt drink ETOH?: No Does the pt have substance abuse?: No - Immunizations Immunizations are current?: Yes Immunizations: TDAP current <10years PD ED PE NORMAL - Vitals Vital signs reviewed: Yes - General General: Alert and oriented X 3, No acute distress - Extremities Extremities: Other (Right middle finger a little less swollen than yesterday, still cellulitic and erythematous though with swelling to the proximal dorsal hand. Still no signs of flexor tenosynovitis. The packing was removed, just a bit of purulent drainage, not much.) - Neuro Neuro: Alert and oriented X 3, Normal speech Results - Vitals Vitals: Vital Signs - 24 hr 02/15/22 12:30 Temperature 36.0 C L Heart Rate 100 Respiratory 16 Rate Blood Pressure 130/78 O2 Saturation 100 Oxygen O2 Source Room air PD MEDICAL DECISION MAKING - ED course ED course: At this point it looks like she is improving. She is on Bactrim for MRSA advised to stop clindamycin. Departure - Departure Disposition: 01 Home, Self Care Clinical Impression: Abscess of finger of right hand Condition: Good Record reviewed to determine appropriate education?: Yes Instructions: ED Abscess IandD Comments: You can stop the clindamycin but continue the trimethoprim sulfamethoxazole, the larger pill that was prescribed on the first visit. Soak it once or twice a day and keep it dressed with a Band-Aid. Return if you worsen. Forms: Activity restrictions
== END 2022-02-15 13:00 | disposition home or self-care (01) ==
LOC: ED 12:27
DX: L02.511 Cutaneous abscess of right hand (principal); B95.62 Methicillin resistant Staphylococcus aureus infection as the cause of diseases classified elsewhere; F17.200 Nicotine dependence, unspecified, uncomplicated
CPT/HCPCS: 99281; 99282